=== PATIENT | female | born 1950 | race Caucasian/White ===

== ENCOUNTER 2016-05-12 07:29 | Emergency (ER) | payer MEDICARE, MEDICAID ==
[~2016-05-12 07:29] MED LIST: ANTIVERT12.5 MG PO; ASA CHILDREN'S81 MG PO; ATIVAN0.5 MG PO; BENZONATATE100 MG PO; CRESTOR40 MG PO; FOLIC ACID0.4 MG PO; GLUCOPHAGE1000 MG PO; HUMALOG100 UNIT/1 SQ; LANTUS100 UNITS/ SQ; LISINOPRIL5 MG PO; MOBIC15 MG PO; NEURONTIN300 MG PO; OMEGA-3 DPS1000 MG PO; OMEPRAZOLE20 M1 PO; OXYBUTYNIN CHLO15 MG PO; PROAIR HFA8.5 GM IH; SINEQUAN DPS100 MG PO; TEMAZEPAM30 MG PO; VITA D PO
--- NOTE | 2016-05-13 13:22 | ER ---
ADMIT: 05/12/2016 RM/LOC: ER [facility] MR#: [id number] [facility] [address] [place], [place] [address] KIMBERLI MCCORMICK [address] [place] [address] Emergency Room Report SEX: F AGE: 65 : 1950 DATE: 05/12/2016 HISTORY OF PRESENT ILLNESS: Kimberli is a 65-year-old female, who presents to the emergency room with a right middle finger swelling for about 3 days. The unusual thing about this is that she is a diabetic. This suddenly appeared. She is very tender and concerned about her finger because she has a red streak going up her hand. REVIEW OF SYSTEMS: She is negative except for what mentioned above. PAST MEDICAL HISTORY: Diabetes type 2, carpal tunnel surgery, , hysterectomy, cervical cancer, and rheumatoid arthritis. MEDICATIONS: See T-sheet, which includes insulin. ALLERGIES: SHE IS ALLERGIC TO ASPIRIN, IT CAUSES SOME REACTION THAT SHE CANNOT DESCRIBE. SOCIAL HISTORY: She is a smoker half a pack a day. PHYSICAL EXAMINATION: VITAL SIGNS: She is afebrile. Her blood pressure is normal at 133/56 with O2 sats 97%. EXTREMITIES: In the medial aspect of her left middle finger, she does have an inflamed area with redness up her finger. It is quite exquisitely tender. The nail is also erythematous and the pad of her finger is swollen, seems to be consistent with a possible hangnail or a cuticle area that was left dry. Bacteria went in and caused the infection. I went ahead and got some consent from her. Betadine'd the finger and prodded with 18-gauge needle, removing the pus from underneath. I had a good amount of pus come out of it hence relieving the inflammation and the pressure. I did start her on cephalexin for home use, but while in the ER, gave her Rocephin. She did not take her medications this morning, but we did do a bedside glucose and she is 163 on her blood sugar. She had the finger dressed up, well padded as she takes care of her grandchildren, and she is encouraged to follow up with her provider in a couple days to make sure that everything is healing well, also advised to soak the finger in Epsom salt to relieve the pressure and encourage healing and continue home medications. DEBI Keene / Kimo Lozoya MD / oswaldo JOB #: [id number] CC: Kimo Lozoya MD, Attending Physician UNKNOWN, Family Physician
[2016-09-04] MEDS ORDERED: RESTORIL DPS30 MG PO (20:12)
[2016-09-04] MEDS ORDERED: COZAAR DPS25 MG PO (20:13)
[2016-09-04] MEDS ORDERED: MOBIC DPS7.5 MG PO (20:14)
[2016-09-04] MEDS ORDERED: OXYBUTYNIN CHLO10 MG PO (20:14)
[2016-09-04] MEDS ORDERED: CRESTOR40 MG PO (20:14)
[2016-09-04] MEDS ORDERED: GLUCOPHAGE1000 MG PO (20:15)
[2016-09-04] MEDS ORDERED: NEURONTIN DPS300 MG PO (20:15)
[2016-09-04] MEDS ORDERED: ZOLOFT DPS50 MG PO (20:15)
[2016-09-04] MEDS ORDERED: ULTRAM DPS50 MG PO (20:15)
[2016-09-04] MEDS ORDERED: ATIVAN-DPS0.5 MG PO (20:16)
[2016-09-04] MEDS ORDERED: PRILOSEC DPS20 MG PO (20:16)
[2016-09-04] MEDS ORDERED: SINEQUAN DPS100 MG PO (20:16)
[2016-09-04] MEDS ORDERED: HUMULIN R500 UNIT/2 SQ ×2 (20:16→20:17)
[2016-09-04] MEDS ORDERED: OMEGA-3 DPS1000 MG PO (20:17)
[2016-09-04] MEDS ORDERED: ZANAFLEX4 MG PO (20:17)
[2016-09-04] MEDS ORDERED: VITAMIN D35000 UNI1 PO (20:18)
[2016-09-04] MEDS ORDERED: FOLIC ACID0.4 MG PO (20:18)
[2016-09-04] MEDS ORDERED: ASA CHILDREN'S81 MG PO (20:18)
[2016-09-04] MEDS ORDERED: MELATIN3 MG PO (20:19)
[2016-09-04] MEDS ORDERED: ANTIVERT-DPS25 MG PO (20:19)
== END 2016-05-12 08:45 | disposition home or self-care (01) ==
LOC: ER 07:29
PROC: 0H9GXZZ Drainage of Left Hand Skin, External Approach (ICD-10-PCS; principal; 2016-05-12)
DX: L03.012 Cellulitis of left finger (principal); E11.9 Type 2 diabetes mellitus without complications; F17.210 Nicotine dependence, cigarettes, uncomplicated; Z85.41 Personal history of malignant neoplasm of cervix uteri; Z88.6 Allergy status to analgesic agent; Z79.4 Long term (current) use of insulin; Z79.82 Long term (current) use of aspirin; Z79.899 Other long term (current) drug therapy

== ENCOUNTER 2016-05-14 09:20 | Day surgery (SDC) | payer MEDICARE, MEDICAID ==
[~2016-05-14] VITALS: Ht 162.6 cm
--- NOTE | 2016-05-15 07:43 | OR ---
ADMIT: 05/14/2016 RM/LOC: [facility] MR#: [id number] [address] [address] KIMBERLI MCCORMICK [address] [address] Operative/Delivery Room Report SEX: F AGE: 65 : 1950 SURGERY DATE: 05/14/2016 SURGEON: Betzy Light MD DIRECTOR OF CATEGORY MANAGEMENT: None. PREPROCEDURE DIAGNOSES: 1. Lumbar spondylosis. 2. Lumbago. POSTPROCEDURE DIAGNOSES: 1. Lumbar spondylosis. 2. Lumbago. PROCEDURE PERFORMED: Right L3, L4, L5, and S1 radiofrequency thermocoagulation. INDICATIONS FOR PROCEDURE: The patient is a pleasant female with a history of chronic low back pain secondary to above-mentioned diagnoses, comes here for planned right-sided lumbar radiofrequency thermocoagulation ANESTHESIA: Local without sedation. ESTIMATED BLOOD LOSS: Zero. COMPLICATIONS: None immediately evident. DESCRIPTION OF THE PROCEDURE: After the patient was seen in the preoperative area, vitals signs were taken. Prior to the procedure, the risks, benefits, and alternative therapies were discussed at length. Patient consent was obtained and updated. The patient was taken to the fluoroscopy suite and placed on the fluoroscopy table in the prone position. Pressure points were padded to comfort, monitors applied, and a timeout performed. ADMIT: 05/14/2016 RM/LOC: [facility] MR#: [id number] [address] [address] KIMBERLI MCCORMICK Michele [address] [address] Operative/Delivery Room Report SEX: F AGE: 65 : 1950 Fluoroscopy was brought in to identify the transverse process of the right- sided L3, L4, L5, and S1. To anesthetize the skin, a spinal cannula was placed near the junction of pedicle and transverse process. Once we obtained appropriate parameters for sensory motor testing, we proceeded with radiofrequency thermocoagulation at each level, which consisted of 80 degrees for 90 seconds. The patient tolerated the procedure well. The patient did not feel any stimulation below her knees. The patient was discharged to post anesthesia care without any immediate complications. PLAN: Discharge instructions were given, followup scheduled. The patient was discharged home with a local company tanker driver. Betzy Light MD/ oswaldo JOB #: [id number] CC: Betzy Light MD, Attending Physician Rafael Lara MD, Family Physician
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
[2016-09-04] MEDS ORDERED: RESTORIL DPS30 MG PO (20:12)
[2016-09-04] MEDS ORDERED: COZAAR DPS25 MG PO (20:13)
[2016-09-04] MEDS ORDERED: MOBIC DPS7.5 MG PO (20:14)
[2016-09-04] MEDS ORDERED: OXYBUTYNIN CHLO10 MG PO (20:14)
[2016-09-04] MEDS ORDERED: CRESTOR40 MG PO (20:14)
[2016-09-04] MEDS ORDERED: GLUCOPHAGE1000 MG PO (20:15)
[2016-09-04] MEDS ORDERED: NEURONTIN DPS300 MG PO (20:15)
[2016-09-04] MEDS ORDERED: ZOLOFT DPS50 MG PO (20:15)
[2016-09-04] MEDS ORDERED: ULTRAM DPS50 MG PO (20:15)
[2016-09-04] MEDS ORDERED: HUMULIN R500 UNIT/2 SQ ×2 (20:16→20:17)
[2016-09-04] MEDS ORDERED: SINEQUAN DPS100 MG PO (20:16)
[2016-09-04] MEDS ORDERED: PRILOSEC DPS20 MG PO (20:16)
[2016-09-04] MEDS ORDERED: ATIVAN-DPS0.5 MG PO (20:16)
[2016-09-04] MEDS ORDERED: OMEGA-3 DPS1000 MG PO (20:17)
[2016-09-04] MEDS ORDERED: ZANAFLEX4 MG PO (20:17)
[2016-09-04] MEDS ORDERED: VITAMIN D35000 UNI1 PO (20:18)
[2016-09-04] MEDS ORDERED: FOLIC ACID0.4 MG PO (20:18)
[2016-09-04] MEDS ORDERED: ASA CHILDREN'S81 MG PO (20:18)
[2016-09-04] MEDS ORDERED: MELATIN3 MG PO (20:19)
[2016-09-04] MEDS ORDERED: ANTIVERT-DPS25 MG PO (20:19)
== END 2016-05-14 10:55 | disposition home or self-care (01) ==
LOC: SSS 09:20
PROC: 3E0T3TZ Introduction of Destructive Agent into Peripheral Nerves and Plexi, Percutaneous Approach (ICD-10-PCS; principal; 2016-05-14)
PROC: BR16YZZ Fluoroscopy of Lumbar Facet Joint(s) using Other Contrast (ICD-10-PCS; principal; 2016-05-14)
DX: G89.29 Other chronic pain (principal); M47.816 Spondylosis without myelopathy or radiculopathy, lumbar region; Z79.899 Other long term (current) drug therapy; Z79.82 Long term (current) use of aspirin; Z88.8 Allergy status to other drugs, medicaments and biological substances

== ENCOUNTER 2016-05-28 06:28 | Day surgery (SDC) | payer MEDICARE, MEDICAID ==
[~2016-05-28] VITALS: Ht 162.6 cm; Wt 74.0 kg
--- NOTE | 2016-05-29 08:09 | OR ---
ADMIT: 05/28/2016 RM/LOC: [facility] MR#: [id number] [address] [address] KIMBERLI MCCORMICK [address] [place] [address] Operative/Delivery Room Report SEX: F AGE: 66 : 1950 SURGERY DATE: 05/28/2016 SURGEON: Betzy Light MD BODY MECHANIC APPRENTICE: None. PREPROCEDURE DIAGNOSES: 1. Lumbar spondylosis. 2. Lumbago. POSTPROCEDURE DIAGNOSES: 1. Lumbar spondylosis. 2. Lumbago. PROCEDURE PERFORMED: Left L3, L4, L5, and S1 medial branch radiofrequency thermocoagulation. INDICATIONS FOR PROCEDURE: The patient is a pleasant female with history of chronic low back pain secondary to above mentioned diagnoses, comes here for planned left sided lumbar radiofrequency ablation. ANESTHESIA: Local without sedation. ESTIMATED BLOOD LOSS: Zero. COMPLICATIONS: None immediately evident. DESCRIPTION OF THE PROCEDURE: After the patient was seen in the preoperative area, vitals signs were taken. Prior to the procedure, the risks, benefits, and alternative therapies were discussed at length. Patient consent was obtained and updated. The patient was taken to the fluoroscopy suite and placed on the fluoroscopy table in the prone position. Pressure points were padded to comfort, monitors applied, and a timeout performed. ADMIT: 05/28/2016 RM/LOC: [facility] MR#: [id number] [address] [address] KIMBERLI MCCORMICK [address] [id number] Operative/Delivery Room Report SEX: F AGE: 66 : 1950 Fluoroscopy was brought in to identify the transverse process of the left- sided L3, L4, L5, and S1. To anesthetize the skin, a spinal cannula was placed near the junction of pedicle and transverse process. Once we obtained appropriate parameters for sensory motor testing, we proceeded with radiofrequency thermocoagulation at each level, which consisted of 80 degrees for 90 seconds. The patient tolerated the procedure well. The patient did not feel any stimulation below her knees. The patient was discharged to post anesthesia care without any immediate complications. PLAN: Discharge instructions were given, followup scheduled. The patient was discharged home with a lyft driver. Betzy Light MD/ oswaldo JOB #: [id number] CC: Betzy Light MD, Attending Physician Rafael Lara MD, Family Physician
[2016-09-04] MEDS ORDERED: RESTORIL DPS30 MG PO (20:12)
[2016-09-04] MEDS ORDERED: COZAAR DPS25 MG PO (20:13)
[2016-09-04] MEDS ORDERED: OXYBUTYNIN CHLO10 MG PO (20:14)
[2016-09-04] MEDS ORDERED: CRESTOR40 MG PO (20:14)
[2016-09-04] MEDS ORDERED: MOBIC DPS7.5 MG PO (20:14)
[2016-09-04] MEDS ORDERED: NEURONTIN DPS300 MG PO (20:15)
[2016-09-04] MEDS ORDERED: GLUCOPHAGE1000 MG PO (20:15)
[2016-09-04] MEDS ORDERED: ZOLOFT DPS50 MG PO (20:15)
[2016-09-04] MEDS ORDERED: ULTRAM DPS50 MG PO (20:15)
[2016-09-04] MEDS ORDERED: ATIVAN-DPS0.5 MG PO (20:16)
[2016-09-04] MEDS ORDERED: SINEQUAN DPS100 MG PO (20:16)
[2016-09-04] MEDS ORDERED: HUMULIN R500 UNIT/2 SQ ×2 (20:16→20:17)
[2016-09-04] MEDS ORDERED: PRILOSEC DPS20 MG PO (20:16)
[2016-09-04] MEDS ORDERED: ZANAFLEX4 MG PO (20:17)
[2016-09-04] MEDS ORDERED: OMEGA-3 DPS1000 MG PO (20:17)
[2016-09-04] MEDS ORDERED: VITAMIN D35000 UNI1 PO (20:18)
[2016-09-04] MEDS ORDERED: FOLIC ACID0.4 MG PO (20:18)
[2016-09-04] MEDS ORDERED: ASA CHILDREN'S81 MG PO (20:18)
[2016-09-04] MEDS ORDERED: MELATIN3 MG PO (20:19)
[2016-09-04] MEDS ORDERED: ANTIVERT-DPS25 MG PO (20:19)
== END 2016-05-28 09:03 | disposition home or self-care (01) ==
LOC: SSS 06:28
PROC: 3E0T3TZ Introduction of Destructive Agent into Peripheral Nerves and Plexi, Percutaneous Approach (ICD-10-PCS; principal; 2016-05-28)
PROC: BR16YZZ Fluoroscopy of Lumbar Facet Joint(s) using Other Contrast (ICD-10-PCS; principal; 2016-05-28)
DX: G89.29 Other chronic pain (principal); M51.16 Intervertebral disc disorders with radiculopathy, lumbar region; M51.26 Other intervertebral disc displacement, lumbar region; F41.9 Anxiety disorder, unspecified; J45.909 Unspecified asthma, uncomplicated; Q21.1 Atrial septal defect; F32.9 Major depressive disorder, single episode, unspecified; E11.42 Type 2 diabetes mellitus with diabetic polyneuropathy; E78.00 Pure hypercholesterolemia, unspecified; I10 Essential (primary) hypertension; Z88.8 Allergy status to other drugs, medicaments and biological substances; Z90.710 Acquired absence of both cervix and uterus; Z98.890 Other specified postprocedural states; Z79.899 Other long term (current) drug therapy

== ENCOUNTER → 2016-06-18 | Outpatient (CLI) | payer MEDICARE, MEDICAID ==
[~2016-06-18] MED LIST changes: +ANTIVERT-DPS25 MG PO; +ATIVAN-DPS0.5 MG PO; +COZAAR DPS25 MG PO; +HUMULIN R500 UNIT/2 SQ; +MELATIN3 MG PO; +MOBIC DPS7.5 MG PO; +NEURONTIN DPS300 MG PO; +OXYBUTYNIN CHLO10 MG PO; +PRILOSEC DPS20 MG PO; +RESTORIL DPS30 MG PO; +ULTRAM DPS50 MG PO; +VITAMIN D35000 UNI1 PO; +ZANAFLEX4 MG PO; +ZOLOFT DPS50 MG PO
== END | disposition home or self-care (01) ==
LOC: RAD.S 09:08
DX: Z12.31 Encounter for screening mammogram for malignant neoplasm of breast (principal); R92.1 Mammographic calcification found on diagnostic imaging of breast